=== PATIENT | male | born 1985 | race Two or more races ===

== ENCOUNTER 2023-02-15 12:17 | Emergency (ER) | payer OTHER ==
[~2023-02-15] VITALS: Ht 172.7 cm; Wt 77.1 kg
[2023-02-15] MEDS ORDERED: ATENOLOL50 MG PO (12:27)
[2023-02-15] MEDS ORDERED: CYCLOBENZAPRINE10 MG PO (13:52)
[2023-02-15] MEDS ORDERED: DICLOFENAC POTA50 MG PO (13:52)
[2023-02-15] MEDS ORDERED: CELEBREX200MG PO (14:04)
== END 2023-02-15 14:08 | disposition home or self-care (01) ==
LOC: ER 12:17
DX: S33.5XXA Sprain of ligaments of lumbar spine, initial encounter (principal); X58.XXXA Exposure to other specified factors, initial encounter; Y93.9 Activity, unspecified; Y92.9 Unspecified place or not applicable; Y99.9 Unspecified external cause status; I10 Essential (primary) hypertension

== ENCOUNTER 2023-05-11 13:44 | Emergency (ER) | payer OTHER ==
[~2023-05-11] VITALS: Ht 172.7 cm; Wt 77.1 kg
[~2023-05-11 13:44] MED LIST: ATENOLOL50 MG PO; CELEBREX200MG PO; CYCLOBENZAPRINE10 MG PO; DICLOFENAC POTA50 MG PO
== END 2023-05-11 17:19 | disposition home or self-care (01) ==
LOC: ER 13:44
DX: R00.2 Palpitations (principal); I10 Essential (primary) hypertension

== ENCOUNTER 2023-06-20 10:57 | Outpatient (CLI) | payer OTHER | END 2023-06-20 10:58 | disposition home or self-care (01) | LOC: NUCLEAR 10:57 | PROVIDERS: ATTEND Internal Medicine | DX: R00.2 Palpitations (principal); I11.9 Hypertensive heart disease without heart failure ==

== ENCOUNTER 2023-08-24 14:18 | Outpatient (CLI) | payer OTHER | END 2023-08-24 23:00 | disposition home or self-care (01) | LOC: LAB 14:18 | DX: Z02.1 Encounter for pre-employment examination (principal) ==

== ENCOUNTER 2024-01-06 07:59 | Outpatient (CLI) | payer OTHER | END 2024-01-06 08:00 | disposition home or self-care (01) | LOC: NUCLEAR 07:59 | PROVIDERS: ATTEND Internal Medicine | DX: R07.9 Chest pain, unspecified (principal); I25.10 Atherosclerotic heart disease of native coronary artery without angina pectoris ==

== ENCOUNTER 2024-07-18 04:09 | Outpatient (CLI) | payer OTHER | END 2024-07-18 04:30 | disposition home or self-care (01) | LOC: PPH VACUNA 04:09 | PROVIDERS: ATTEND Emergency Medicine Pediatric Emergency Medicine | DX: Z23 Encounter for immunization (principal) ==

== ENCOUNTER → 2024-12-18 15:29 | Outpatient (CLI) | payer OTHER ==
[2024-12-20 07:09] LABS: HEPATITIS A ANTIBODY IGG Negative (Negative); HEPATITIS B CORE IGG Negative (Negative); HEPATITIS C VIRUS ANTIBODY Non Reactive (Non Reactive)
== END | disposition home or self-care (01) ==
LOC: LAB 15:29
DX: A64 Unspecified sexually transmitted disease (principal); B19.9 Unspecified viral hepatitis without hepatic coma

== ENCOUNTER 2025-07-10 16:00 | Outpatient (CLI) | payer OTHER | END 2025-07-10 16:10 | disposition home or self-care (01) | LOC: PPH VACUNA 16:00 | PROVIDERS: ATTEND Emergency Medicine Pediatric Emergency Medicine | DX: Z23 Encounter for immunization (principal) ==